=== PATIENT | female | born 1945 | race Caucasian/White ===

== ENCOUNTER 2023-07-14 16:22 | Observation (INO) ==
[2023-07-14 17:06] LABS: ABS Eosinophils 0.6 10^3/uL (0.0-0.5); ABS Lymphocytes 1.4 10^3/uL (1.0-4.8); ABS Monocytes 0.7 10^3/uL (0.0-0.9); ABS Neutrophils 3.5 10^3/uL (1.5-7.6); ABS Nucleated RBC 0.01 10^3/ul; Eosinophil % 9.2 %; Hematocrit 33.9 % (35-45); Hemoglobin 11.1 g/dL (11.5-14.3); Mean Corpuscular Hemoglobin 30.8 pg (27-33); Mean Corpuscular Hgb Conc 32.8 g/dL (31-36); Mean Platelet Volume 7.6 fL (7.5-11.2); Nucleated Red Blood Cells % 0.1 %/100WBC (0.0-0.8); Platelet Count 201 10^3/uL (150-450); Red Cell Distribution Width 15.3 % (12-17); White Blood Count 6.1 10^3/uL (3.8-11.8)
[2023-07-14 17:18] LABS: Activated Partial Thrombo Time 27.7 seconds (26.0-38.0); INR 0.99 (0.83-1.13)
[2023-07-14 18:14] LABS: Albumin 3.8 g/dL (3.2-5.2); Albumin/Globulin Ratio 1.9 (1-3); Calcium 9.8 mg/dL (8.6-10.3); Creatinine, Serum 0.8 mg/dL (0.51-0.95); Direct Bilirubin 0.1 mg/dL (0.03-0.18); HDL Cholesterol 62.5 mg/dL; Indirect Bilirubin 0.8 mg/dL (0.3-1.0); Potassium 3.8 mmol/L (3.5-5.0); Total Bilirubin 0.9 mg/dL (0.2-1.0); Total Protein 5.8 g/dL (6.4-8.9); eGFR CKD-EPI 76.3 (>60)
[2023-07-14 20:49] LABS: Ferritin 19.1 ng/mL (11-307)
[2023-07-14 20:53] LABS: Folate 12.12 ng/mL (5.90-24.80)
[2023-07-15] MEDS: Enoxaparin 40 MG/0.4 ML SYR SUBCUT SCH (01:51)
[2023-07-15 02:08] LABS: Urine Appearance Clear; Urine Bilirubin Negative (Negative); Urine Blood Trace (Negative); Urine Color Light-Yellow; Urine Glucose Negative (Negative); Urine Ketones Negative (Negative); Urine Nitrite Negative (Negative); Urine Protein Negative (Negative); Urine Urobilinogen Negative (Negative)
[2023-07-15 02:13] LABS: Urine Bacteria Absent /HPF (Absent); Urine Red Blood Cell Trace(0-2/hpf) /HPF (0-Trace); Urine Squamous Epithelial Cell Present /HPF (Absent); Urine White Blood Cell 1+(6-10/hpf) /HPF (0-Trace)
[2023-07-15 06:44] LABS: ABS Eosinophils 0.7 10^3/uL (0.0-0.5); ABS Monocytes 0.7 10^3/uL (0.0-0.9); ABS Neutrophils 2.3 10^3/uL (1.5-7.6); Hematocrit 32.9 % (35-45); Hemoglobin 11.2 g/dL (11.5-14.3); Lymphocyte % 35.4 %; Mean Corpuscular Hemoglobin 31.8 pg (27-33); Mean Corpuscular Volume 93.5 fL (80-97); Mean Platelet Volume 7.6 fL (7.5-11.2); Platelet Count 184 10^3/uL (150-450); Red Blood Count 3.52 10^6/uL (3.63-4.92); Red Cell Distribution Width 15.9 % (12-17); White Blood Count 5.7 10^3/uL (3.8-11.8)
[2023-07-15 07:06] LABS: Calcium 9.1 mg/dL (8.6-10.3); Creatinine, Serum 0.8 mg/dL (0.51-0.95); eGFR CKD-EPI 76.3 (>60)
[2023-07-15] MEDS: Sulfur Hexaflouride MICROSPHR 25 MG VIAL IV ONE (11:22)
[2023-07-15 11:36] VITALS: BP 127/64
[2023-07-23] MEDS: Iodixanol 320 (CONTRAST) 100 ML SDV IV ONE (07:33)
== END 2023-07-15 14:02 | disposition home or self-care (01) ==
LOC: EDHOLD 16:22 → ED 16:22 → MEDTELE 07-15 00:59
PROVIDERS: ADMIT Internal Medicine; ATTEND Internal Medicine